=== PATIENT | male | born 1980 | race Two or more races ===

== ENCOUNTER 2019-06-03 23:05 | Emergency (ER) | payer OTHER, SELFPAY ==
[2019-06-03 23:07] VITALS: BP 126/83; PULSE 86; RESP 16; TEMP 35.8; O2SAT 98; BMI 32.7
--- NOTE | 2019-06-03 23:23 | ED.DCSUM_ITS ---
History of Present Illness Chief Complaint: Nausea/Vomiting/Diarrhea Narrative: Patient is a 38-year-old male who presents with nausea vomiting and diarrhea. Symptoms began 1 hour ago. He had a little bit of diarrhea and had 3 episodes of nonbloody nonbilious emesis. He said he also felt a little dizzy. No fevers . No pain. Past Medical History Primary Care Physician: NOT,DEFINED [NON-STAFF] - Past Medical History: - - Depression Smoking Status: Never smoker Review of Systems All systems negative except as indicated General: Denies: Fever Cardiovascular: Denies: Chest pain Respiratory: Denies: Dyspnea Gastrointestinal: Reports: Nausea, Vomiting, Diarrhea. Denies: Abdominal pain Musculoskeletal: Denies: Myalgias, Arthralgias Skin: Denies: Rash Neurological: Denies: Headache Allergy: Denies: Uticaria Physical Exam Vital Signs/Narrative: Vital Signs Temp Pulse Resp BP Pulse Ox 06/03/19 23:07 96.4 F L 86 16 126/83 H 98 Inital Vital Signs reviewed: Yes General: Well nourished, Well developed Head: Normocephalic Eyes: EOMI ENT: Moist mucous membranes Neck: Supple Cardiovascular: Regular rate, Regular rhythm Respiratory: No distress, CTA bilaterally Abdomen: Soft, Nontender, Nondistended Extremities: Nontender Skin: Normal color Neurological: Alert Psychological: Normal affect Diagnostic/Tx/Re-eval - Medical Decision Making Patient was given IV fluids and Zofran. His nausea is improved and he has had no further vomiting. His presentation is most suggestive of a viral gastroenteritis. Patient given a prescription for Zofran and discharged home. He was advised on supportive care. He does understand to return for new or worsening symptoms. ED Disposition - Plan for ED Patient: Disposition: Home or Assisted Living Diagnosis: Gastroenteritis Instructions: GASTROENTERITIS, Viral (6y-Adult) Prescriptions: Ondansetron [Zofran Odt] 4 mg PO Q8H PRN PRN #10 tab PRN Reason: Nausea Prescription Printed Referrals: NOT,DEFINED [NON-STAFF] -
[2019-06-03] MEDS: Ondansetron 4 MG/2 ML Vial IV (23:48)
[2019-06-03] MEDS: 0.9% Normal Saline 1,000 ML 999 ML IV (23:48)
[2019-06-04 00:27] VITALS: BP 121/53; PULSE 71; RESP 16; O2SAT 99
== END 2019-06-04 00:30 | disposition home or self-care (01) ==
PROVIDERS: Emergency Provider Emergency Medicine
DX: K52.9 Noninfective gastroenteritis and colitis, unspecified (principal); F32.9 Major depressive disorder, single episode, unspecified; Z79.899 Other long term (current) drug therapy
CPT/HCPCS: 96361; 96374; 99283; J7030; A4216; J2405

== ENCOUNTER → 2019-06-25 14:20 | Outpatient (CLI) | payer OTHER, SELFPAY ==
[2019-06-03 23:07] VITALS: BMI 32.7
[2019-06-25 15:49] LABS: Cholesterol 220 mg/dL (200); Glucose 89 mg/dL (74-106); High Density Lipoprotein 45 mg/dL; Triglycerides 218 mg/dL; Very Low Density Lipoprotein 44 mg/dL (5-40)
== END ==
DX: Z13.9 Encounter for screening, unspecified (principal)
CPT/HCPCS: 36415; 80061; 82947